=== PATIENT | female | born 1955 | race Hispanic/Latino ===

== ENCOUNTER 2019-02-27 07:23 | Emergency (ER) | payer SELFPAY ==
[2019-02-27] MEDS ORDERED: ONDANSETRON HCL 4 MG/2 ML VIAL ONE (07:49)
[2019-02-27] MEDS ORDERED: HYDROCODONE/ACETAMINOPHEN 5/325 MG TAB ONE (07:50)
[2019-02-27] MEDS ORDERED: LISINOPRIL 5 MG TABLET ONE (07:50)
[2019-02-27 07:57] LABS: BASOPHILS % (AUTO) 0.7 % (0.0-5.0); EOSINOPHILS % (AUTO) 3.5 % (0.0-8.0); HEMATOCRIT 42.2 % (36-48); MEAN CORPUSCULAR HEMOGLOBIN 25.1 pg (27.0-33.0); MEAN CORPUSCULAR HGB CONC 31.3 g/dL (32.0-36.0); MEAN CORPUSCULAR VOLUME 80.4 fL (79-99); MONOCYTES % (AUTO) 8.1 % (3.0-13.0); NEUTROPHILS % (AUTO) 53.4 % (40.0-77.0); PLATELET COUNT (AUTO) 215 K/uL (130-400); RED BLOOD CELL COUNT(AUTO) 5.25 MIL/uL (4.00-5.50); RED CELL DISTRIBUTION WIDTH 13.4 % (11.0-15.5); WHITE BLOOD COUNT (AUTO) 6.8 K/uL (4.8-10.8)
[2019-02-27 08:11] LABS: CREATININE 0.7 mg/dL (0.5-1.5); POTASSIUM 4.4 mmol/L (3.5-5.1)
[2019-02-27 08:17] LABS: ALBUMIN 3.5 g/dL (3.5-5.0); BILIRUBIN,TOTAL 0.5 mg/dL (0.2-1.0); TOTAL PROTEIN, SERUM 7.9 g/dL (6.0-8.3)
[2019-02-27] MEDS ORDERED: LABETALOL 20 MG/4 ML DISP.SYRIN IV ONE (08:57)
[2019-02-27] MEDS ORDERED: INSULIN HUMULIN R 100 UNIT/ML 3ML ONE (08:58)
[2019-02-27 09:17] LABS: ERYTHROCYTE SEDIMENTATION RATE 43 MM/HR (0-30)
[2019-02-27] MEDS ORDERED: CEFTRIAXONE SODIUM 1 GM ONE (09:40)
[2019-02-27] MEDS ORDERED: AMLODIPINE BESYLATE 5 MG TAB ONE (09:56)
== END 2019-02-27 10:50 | disposition home or self-care (01) ==
LOC: EDH 07:23
DX: E11.621 Type 2 diabetes mellitus with foot ulcer (principal); E11.65 Type 2 diabetes mellitus with hyperglycemia; I10 Essential (primary) hypertension; Z91.14 Patient's other noncompliance with medication regimen; Z90.710 Acquired absence of both cervix and uterus
CPT/HCPCS: 36415; 73630; 80053; 82550; 82948 ×2; 84484; 85025; 85651; 93005; 96374; 96375; 99285; J0696; J1815; J2405

== ENCOUNTER 2019-12-15 09:20 | Inpatient (IN) | payer SELFPAY ==
[~2019-12-15] VITALS: Ht 157.5 cm; Wt 78.0 kg
[2019-12-15] MEDS ORDERED: IOHEXOL-350 75 ML VIAL IV ONE (09:45)
[2019-12-15] MEDS ORDERED: LORAZEPAM 2 MG/ML 1 ML VIAL ONE (10:17)
[2019-12-15 10:29] LABS: BASOPHILS % (AUTO) 0.7 % (0.0-5.0); EOSINOPHILS % (AUTO) 3.2 % (0.0-8.0); HEMATOCRIT 47.4 % (36-48); LYMPHOCYTES % (AUTO) 41.3 % (21.0-51.0); MEAN CORPUSCULAR HEMOGLOBIN 25.1 pg (27.0-33.0); MONOCYTES % (AUTO) 5.7 % (3.0-13.0); PLATELET COUNT (AUTO) 234 K/uL (130-400); RED BLOOD CELL COUNT(AUTO) 5.85 MIL/uL (4.00-5.50); WHITE BLOOD COUNT (AUTO) 7.2 K/uL (4.8-10.8)
[2019-12-15 10:34] LABS: INR 0.98 (0.85-1.15); PARTIAL THROMBOPLASTIN TIME 27.9 SEC (26.3-35.5); PROTHROMBIN TIME 10.6 SEC (9.6-11.6)
[2019-12-15 10:43] LABS: CREATININE 0.7 mg/dL (0.5-1.5); POTASSIUM 4.3 mmol/L (3.5-5.1)
[2019-12-15] MEDS ORDERED: NICARDIPINE HCL IV ONE ×2 (10:45)
[2019-12-15] MEDS ORDERED: SODIUM CHLORIDE IV ONE ×2 (10:45)
[2019-12-15] MEDS ORDERED: NACL IV ONE ×2 (10:45)
[2019-12-15 10:46] LABS: ALBUMIN 3.6 g/dL (3.5-5.0); BILIRUBIN,TOTAL 0.3 mg/dL (0.2-1.0); TOTAL PROTEIN, SERUM 8.4 g/dL (6.0-8.3)
[2019-12-15 10:54] LABS: APPEARANCE,URINE Clear (CLEAR); BILIRUBIN,URINE Negative (NEGATIVE); COLOR,URINE Yellow (YELLOW); GLUCOSE, URINE (UA) 500 mg/dL (NEGATIVE); KETONES,URINE Negative (NEGATIVE); LEUKOCYTE ESTERASE ,URINE Negative (NEGATIVE); NITRATE,URINE Negative (NEGATIVE); OCCULT BLOOD,URINE Small (NEGATIVE); PH,URINE 8.5 (5.0-8.0); PROTEIN,URINE POS 2+ mg/dL (NEGATIVE); UROBILINOGEN,URINE 0.2 mg/dL (0.2-1.0)
[2019-12-15 11:02] LABS: AMPHET/METH SCREEN,URINE NEGATIVE (NEGATIVE); BARBITURATE SCREEN, URINE NEGATIVE (NEGATIVE); BENZODIAZEPINES SCREEN,URINE NEGATIVE (NEGATIVE); CANNABINOID SCREEN,URINE NEGATIVE (NEGATIVE); COCAINE SCREEN,URINE NEGATIVE (NEGATIVE); OPIATE SCREEN,URINE NEGATIVE (NEGATIVE); PHENCYCLIDINE SCREEN,URINE NEGATIVE (NEGATIVE)
[2019-12-15 11:30] LABS: BACTERIA,URINE Rare /HPF (None Seen); RBC,URINE 0-1 /HPF (0-1); SQUAMOUS EPITHELIAL CELL,UR Rare /HPF (0-2); WBC,URINE 0-1 /HPF (0-1)
[2019-12-15] MEDS ORDERED: NITROGLYCERIN 0.4 MG SL TAB SL PRN (18:30)
[2019-12-15] MEDS ORDERED: ACETAMINOPHEN 325 MG TAB PO PRN (18:30)
[2019-12-15] MEDS ORDERED: ONDANSETRON HCL 4 MG/2 ML VIAL IV PRN (18:30)
[2019-12-15] MEDS ORDERED: LACTULOSE 20 GM/30 ML UDCUP PO PRN (18:30)
[2019-12-15] MEDS ORDERED: ASPIRIN 81MG TAB.CHEW PO SCH (18:30)
[2019-12-15] MEDS ORDERED: ASPIRIN 81MG TAB.CHEW ONE (18:31)
[2019-12-15] MEDS ORDERED: AMLODIPINE BESYLATE 5 MG TAB ONE (18:31)
[2019-12-15 18:39] LABS: HEMOGLOBIN A1C 10.7 % (4.0-6.0)
[2019-12-15] MEDS: PHARMACY COMMUNICATION MISC SCH (18:45)
[2019-12-15 19:19] LABS: THYROID STIMULATING HORMONE 2.75 uIU/mL (0.36-3.74)
[2019-12-15] MEDS: FAMOTIDINE 20MG TAB 20 MG TAB PO SCH (21:00)
[2019-12-15] MEDS ORDERED: FAMOTIDINE 20MG TAB 20 MG TAB ONE (21:40)
[2019-12-15] MEDS ORDERED: INSULIN HUMULIN R 100 UNIT/ML 3ML ONE (22:28)
[2019-12-15] MEDS ORDERED: METF-444 PO (23:10)
[2019-12-15] MEDS ORDERED: LISI-613 PO (23:10)
[2019-12-16] VITALS (8 sets, daily range): BP systolic 111–184; BP diastolic 57–92
[2019-12-16] MEDS ORDERED: HYDRALAZINE HCL 20 MG/ML VIAL IV PRN (00:30)
[2019-12-16] MEDS ORDERED: HYDRALAZINE HCL 20 MG/ML VIAL ONE (00:32)
[2019-12-16] MEDS ORDERED: INSULIN HUMULIN R 100 UNIT/ML 3ML ONE (06:14)
[2019-12-16] MEDS ORDERED: DEXTROSE 50%-WATER 50 ML DISP.SYRIN IV PRN (06:15)
[2019-12-16] MEDS ORDERED: GLUCAGON 1MG KIT 1 MG ML IM PRN (06:15)
[2019-12-16] MEDS: INSULIN HUMULIN R 100 UNIT/ML 3ML SQ SCH ×4 (06:40→21:06)
[2019-12-16] MEDS: PHARMACY COMMUNICATION MISC SCH ×2 (07:46→17:04)
--- NOTE | 2019-12-16 09:00 | NUR ---
DYSPHAGIA EVAL COMPLETED. -S/S OF ASPIRATION. RECOMMEND REGULAR TEXTURE, THIN LIQUIDS; PILLS WHOLE WITH LIQUIDS. Addendum: 12/16/19 at 1307 by SONIA MELÉNDEZ, [facility] Amended: Links added.
--- NOTE | 2019-12-16 09:15 | NUR ---
COGNITIVE-LINGUISTIC EVALUATION. WITHIN FUNCTIONAL LIMITS. EVALUATION: Pt AAOX3. Pt REQUESTS WANTS AND NEEDS INDEPENDENTLY. Pt INTELLIGIBLE AT 100% ACCURACY TO THE UNFAMILIAR LISTENER. Pt COMMUNICATING AT CONVERSATIONAL LEVEL WITH NO DEFICITS IDENTIFIED AT THIS TIME. Pt COMPLETED COGNITIVE-LINGUISTIC EVALUATION TARGETING: ORIENTATION, ATTENTION/CONCENTRATION, MEMORY (IMMEDIATE, SHORT-TERM AND LONG-TERM), PROBLEM SOLVING, LOGIC/REASONING/INFERENCE, THOUGHT ORGANIZATION, AND FUNCTIONAL MATH. Pt ABLE TO COMPLETE TASKS WITH CORRECT AND TIMELY ANSWERS TO ALL SECTIONS. G-CODES SPOKEN LANGUAGE EXPRESSION: [id number] Addendum: 12/16/19 at 1309 by SONIA MELÉNDEZ [facility] Amended: Links added.
[2019-12-16] MEDS: FAMOTIDINE 20MG TAB 20 MG TAB PO SCH ×2 (09:23→19:47)
[2019-12-16] MEDS: AMLODIPINE BESYLATE 5 MG TAB PO SCH (09:23)
[2019-12-16] MEDS: ASPIRIN 81MG TAB.CHEW PO SCH (09:23)
--- NOTE | 2019-12-16 14:32 | NUR ---
DANN POON Spoke with son Johnson Marrufo ([phone]). Patient lives with family and was independent with ADLs before this admission. Patient has no DME at home. Johnson requests to be listed as next of kin. Tentative D/C plan is to D/C to physical address listed in [place], [place] via private vehicle. CM to follow up. Addendum: 12/16/19 at 1539 by DORIE HOANG Amended: Links added.
[2019-12-16] MEDS: ENOXAPARIN SODIUM 40 MG/0.4 ML SYRINGE SQ SCH (15:48)
--- NOTE | 2019-12-16 15:51 | NUR ---
RD NOTIFICATION Pt admitted with TIA, Emergent HTN, DM2. S/p ST swallow Evaluation. No sign of aspiration. Diet advanced to 75gm CCD. Pt in procedure at time of visit. Monitored labs: BG 241, CRP 20.70, A1C 10.7, CHOL 256, LDL 160. RD notified of Pt with special dietary requests, RD to follow up. Pt noncompliant with medications, also began having double vision and constant headache prior to admit, as per EMR. Recommend add Heart Healthy modifier to diet order RD to follow up with Heart Healthy, Diabetes Nutrition Education RD to continue to monitor. Please notify as additional nutrition concerns arise. Thank you. Addendum: 12/16/19 at [address] Amended: Links added.
[2019-12-16] MEDS: METFORMIN HCL 500 MG TABLET PO SCH (17:00)
[2019-12-16] MEDS ORDERED: ATORVASTATIN CALCIUM 40 MG TABLET ONE (18:29)
[2019-12-16] MEDS ORDERED: INSULIN GLARGINE 100 UNITS/ML 10 ML VIAL SQ SCH (21:00)
[2019-12-16] MEDS ORDERED: ATORVASTATIN CALCIUM 40 MG TABLET PO SCH (21:00)
[2019-12-17] MEDS: PHARMACY COMMUNICATION MISC SCH ×2 (02:45→10:45)
[2019-12-17 03:11] VITALS: BP 135/77
[2019-12-17 05:17] LABS: HEMATOCRIT 42.2 % (36-48); MEAN CORPUSCULAR HGB CONC 31.5 g/dL (32.0-36.0); MEAN CORPUSCULAR VOLUME 79.2 fL (79-99); PLATELET COUNT (AUTO) 237 K/uL (130-400); RED BLOOD CELL COUNT(AUTO) 5.33 MIL/uL (4.00-5.50); RED CELL DISTRIBUTION WIDTH 13.3 % (11.0-15.5); WHITE BLOOD COUNT (AUTO) 8.7 K/uL (4.8-10.8)
[2019-12-17] MEDS: INSULIN HUMULIN R 100 UNIT/ML 3ML SQ SCH ×2 (05:33→11:44)
[2019-12-17 05:39] LABS: BAND NEUTROPHILS % (MANUAL) 1 % (0-2); BASOPHILS % (MANUAL) 2 % (0-2); LYMPHOCYTES % (MANUAL) 42 % (22-44); MAN.DIFF COMMENT-IMPRESSION MANUAL DIFFERENTIAL; MONOCYTES % (MANUAL) 7 % (2-9); REACTIVE LYMPHOCYTES 4 % (0-0); SEGMENTED NEUTROPHILS % 44 % (40-70)
[2019-12-17 05:44] LABS: ALBUMIN 2.9 g/dL (3.5-5.0); BILIRUBIN,TOTAL 0.3 mg/dL (0.2-1.0); CREATININE 0.9 mg/dL (0.5-1.5); POTASSIUM 4.1 mmol/L (3.5-5.1)
[2019-12-17] MEDS: METFORMIN HCL 500 MG TABLET PO SCH (05:46)
[2019-12-17 07:00] VITALS: BP 153/73
[2019-12-17] MEDS ORDERED: LISINOPRIL 20 MG TABLET PO SCH (09:00)
[2019-12-17] MEDS: FAMOTIDINE 20MG TAB 20 MG TAB PO SCH (09:41)
[2019-12-17] MEDS: ASPIRIN 81MG TAB.CHEW PO SCH (09:41)
[2019-12-17] MEDS: AMLODIPINE BESYLATE 5 MG TAB PO SCH (09:41)
[2019-12-17] MEDS: ENOXAPARIN SODIUM 40 MG/0.4 ML SYRINGE SQ SCH (09:42)
[2019-12-17 11:00] VITALS: BP 159/81
[2019-12-17] MEDS ORDERED: LISI-613 PO (12:49)
[2019-12-17] MEDS ORDERED: GLIP5TAB11 PO (12:49)
[2019-12-17] MEDS ORDERED: AMLO5TAB9 PO (12:49)
[2019-12-17] MEDS ORDERED: ATOR40TA69 PO (12:51)
[2019-12-17] MEDS ORDERED: AEC81 PO (12:51)
--- NOTE | 2019-12-17 15:13 | NUR ---
FOLLOW UP COMPLETED. Pt WITH NO OVERT S/S OF ASPIRATION AND TOLERATING DIET. SKILLED SPEECH THERAPY NOT WARRANTED AT THIS TIME. Addendum: 12/17/19 at 1514 by SONIA MELÉNDEZ, [facility] Amended: Links added.
--- NOTE | 2019-12-17 15:50 | NUR ---
pt states understanding of all d/c instructions on after care for a TIA; i have given her list of physicians to find herself a primary care physcian and i have given her dr olivia's number to call once she finds a pcp and gets a referral; i have discussed new perscriptions with patient and given her scripts and told her to return to ed for any return of symptoms of a stroke or tia; i have also applied a soft gauze patch to her eye and given her extra gauze to take home and use. iv access and tele box removed.
== END 2019-12-17 16:09 | disposition home or self-care (01) | DRG 69 ==
LOC: EDH 09:20 → EDHIP 09:21 → 4AH 23:03 → UNDODISIN 12-16 14:01
PROVIDERS: ADMIT Internal Medicine; ATTEND Internal Medicine
DX: G45.9 Transient cerebral ischemic attack, unspecified (principal); H49.22 Sixth [abducent] nerve palsy, left eye; E11.9 Type 2 diabetes mellitus without complications; I10 Essential (primary) hypertension; E66.9 Obesity, unspecified; Z68.32 Body mass index [BMI] 32.0-32.9, adult; Z91.19 Patient's noncompliance with other medical treatment and regimen; E78.5 Hyperlipidemia, unspecified; G47.00 Insomnia, unspecified; Z20.828 Contact with and (suspected) exposure to other viral communicable diseases
CPT/HCPCS: 36415; 70450; 70496; 70498; 70551; 71045; 80053; 80061; 80305; 81001; 82550; 82948; 83036; 83721; 84443; 84484; 85025; 85610; 85651; 85730; 86038; 86140; 86215; 86235; 86592; 87426; 92522; 92610; 93005; 93356; 99291; C8929; G0378; J0360; J1650; J1815; J2060; J3490; J7050; Q9967; U0003

== ENCOUNTER 2023-11-18 07:38 | Observation (INO) | payer MEDICARE ==
[~2023-11-18] VITALS: Ht 157.5 cm; Wt 76.3 kg
[~2023-11-18 07:38] MED LIST: AEC81 PO; AMLO-257 PO; ATOR40TA69 PO; GLIP5TAB15 PO; LISI20TA24 PO; METF-444 PO
[2023-11-18 08:19] LABS: BASOPHILS # (AUTO) 0.05 K/uL (0.00-0.20); BASOPHILS % (AUTO) 0.7 % (0.0-5.0); EOSINOPHILS # (AUTO) 0.18 K/uL (0.00-0.70); EOSINOPHILS % (AUTO) 2.6 % (0.0-8.0); IMMATURE GRANULOCYTE ABSOLUTE 0.02 K/uL (0-1); LYMPHOCYTES % (AUTO) 42.9 % (21.0-51.0); MEAN CORPUSCULAR HEMOGLOBIN 25.1 pg (27.0-33.0); MEAN CORPUSCULAR HGB CONC 31.2 g/dL (32.0-36.0); MEAN CORPUSCULAR VOLUME 80.6 fL (79-99); MONOCYTES # (AUTO) 0.5 K/uL (0.1-1.0); MONOCYTES % (AUTO) 6.5 % (3.0-13.0); NEUTROPHILS # (AUTO) 3.3 K/uL (1.8-7.7); PLATELET COUNT (AUTO) 225 K/uL (130-400); RED BLOOD CELL COUNT(AUTO) 5.21 MIL/uL (4.00-5.50); RED CELL DISTRIBUTION WIDTH 13.2 % (11.0-15.5)
[2023-11-18 08:20] LABS: ADD UA MICROSCOPIC YES; APPEARANCE,URINE CLEAR (CLEAR); BILIRUBIN,URINE NEGATIVE (NEGATIVE); COLOR,URINE COLORLESS (YELLOW); GLUCOSE, URINE (UA) NEGATIVE (NEGATIVE); KETONES,URINE NEGATIVE (NEGATIVE); LEUKOCYTE ESTERASE ,URINE NEGATIVE Leu/uL (NEGATIVE); NITRATE,URINE NEGATIVE (NEGATIVE); OCCULT BLOOD,URINE NEGATIVE (NEGATIVE); PH,URINE 6.5 (5.0-8.0); PROTEIN,URINE 100 mg/dL (NEGATIVE); UROBILINOGEN,URINE 0.2 mg/dL (0.2-1.0)
[2023-11-18 08:23] LABS: BACTERIA,URINE RARE /HPF (None Seen); RBC,URINE 0-1 /HPF (0-1); SQUAMOUS EPITHELIAL CELL,UR RARE /HPF (0-2); WBC,URINE 0-1 /HPF (0-1)
[2023-11-18 08:28] LABS: POTASSIUM 4.1 mmol/L (3.5-5.1)
[2023-11-18] MEDS: LAbetaLOL 20MG SYG IV ONE (09:43)
[2023-11-18] MEDS: ketOROlac 30MG VIAL (30MG/ML) IVP ONE (09:43)
[2023-11-18] MEDS: LORazepam 1 MG TABLET PO ONE (11:04)
[2023-11-18] MEDS: cloNIDine HCL 0.1 MG TABLET PO ONE (13:12)
[2023-11-18] MEDS ORDERED: hydrALAZine 20MG/ML VIAL IV PRN (14:00)
[2023-11-18] MEDS ORDERED: ondanSETRON 4MG INJ IVP PRN (14:00)
[2023-11-18] MEDS ORDERED: acetaMINOPHEN 325 MG TAB PO PRN (14:00)
[2023-11-18] MEDS ORDERED: HYDR25TA67 PO (14:26)
[2023-11-18] MEDS ORDERED: LISI40TA9 PO (14:26)
[2023-11-18] MEDS ORDERED: CLON0.1T PO (14:26)
[2023-11-18] MEDS ORDERED: TIZA-194 PO (14:26)
[2023-11-18] MEDS ORDERED: INSU3INS3 SQ (14:26)
[2023-11-18] MEDS ORDERED: HYDR-4060 PO (14:31)
[2023-11-18] MEDS ORDERED: MAG/ALUM/SIMETH 30 ML UDCUP PO PRN (15:00)
[2023-11-18] MEDS ORDERED: PoTASSium chloRIDE 20MEQ ER 20 MEQ ERTAB PO PRN (15:00)
[2023-11-18] MEDS ORDERED: PoTASSium chloRIDE 20MEQ/100ML 100 ML IV PRN ×2 (15:00)
[2023-11-18] MEDS ORDERED: HYDROcodone/APAP 5/325 1 TAB TABLET PO PRN ×2 (15:00)
[2023-11-18] MEDS ORDERED: LACTULOSE 20 GM/30 ML UDCUP PO PRN (15:00)
[2023-11-18] MEDS ORDERED: GLUCAGON 1MG KIT 1 MG ML IM PRN (15:00)
[2023-11-18] MEDS: amLODIPine 5 MG TAB PO ONE (15:00)
[2023-11-18] MEDS ORDERED: DEXTROSE 50%-WATER 50 ML DISP.SYRIN IV PRN (15:00)
[2023-11-18] MEDS ORDERED: morPHINE 2 MG SYG IVP PRN (15:00)
[2023-11-18] MEDS ORDERED: PoTASSium chl 10% ELIXIR 20MEQ 20 MEQ/15 ML UDCUP PO PRN (15:00)
[2023-11-18 16:05] VITALS: BP 200/84; PULSE 68; RESP 16; TEMP 97.6; O2SAT 98
[2023-11-18] MEDS: 0.9%NACL 1000ML 1,000 ML IV SCH (16:05)
[2023-11-18] MEDS: cloNIDine HCL 0.1 MG TABLET PO PRN (16:25)
[2023-11-18] MEDS: metoPROLOL tartRATE 50 MG TAB PO ONE (17:54)
[2023-11-18] MEDS: GABAPENTIN 300 MG CAPSULE PO ONE (18:24)
[2023-11-18 20:00] VITALS: O2SAT 96
[2023-11-18] MEDS: GABAPENTIN 300 MG CAPSULE PO SCH (20:02)
[2023-11-18] MEDS: hydrALAZine 25MG TABLET PO SCH (20:03)
[2023-11-18] MEDS: FAMOTIDINE 20MG TAB PO SCH (20:03)
[2023-11-18] MEDS: INSULIN humuLIN R 100 UNIT/ML 3ML SQ SCH (20:08)
[2023-11-18 20:31] VITALS: BP 166/81; PULSE 66; RESP 17; TEMP 97.6
[2023-11-18] MEDS ORDERED: amLODIPine 5 MG TAB PO SCH (21:00)
[2023-11-18] MEDS ORDERED: metoPROLOL tartRATE 50 MG TAB PO SCH (21:00)
[2023-11-18 23:39] VITALS: BP 149/80; PULSE 71; RESP 17; TEMP 97.7
[2023-11-19 04:28] VITALS: BP 152/81; PULSE 72; RESP 18; TEMP 97.8
[2023-11-19 07:40] VITALS: O2SAT 100
[2023-11-19 08:14] VITALS: BP 202/89; PULSE 74; RESP 20; TEMP 98.3
[2023-11-19] MEDS: MELOXICAM 7.5 MG TABLET PO SCH (08:34)
[2023-11-19] MEDS: metoPROLOL tartRATE 50 MG TAB PO SCH (08:34)
[2023-11-19] MEDS: LISINOPRIL 40 MG TABLET PO SCH (08:35)
[2023-11-19] MEDS: ENOXAPARIN SODIUM 40 MG/0.4 ML SYRINGE SQ SCH (08:36)
[2023-11-19] MEDS: INSULIN GLARgine 100 UNITS/ML 10 ML VIAL SQ SCH (08:53)
[2023-11-19] MEDS ORDERED: [UNRECOGNIZED DRUG - OTHER] SQ SCH (09:00)
[2023-11-19] MEDS ORDERED: INSULIN GLARGINE HUM REC ANLOG 23 UNIT SQ SCH (09:00)
[2023-11-19] MEDS ORDERED: INSULIN GLARgine 100 UNITS/ML 10 ML VIAL SQ SCH (09:00)
[2023-11-19 12:27] VITALS: BP 134/67; PULSE 66; RESP 20; TEMP 98.6
[2023-11-19] MEDS: metoPROLOL tartRATE 50 MG TAB PO ONE (12:33)
[2023-11-19] MEDS ORDERED: METO100T14 PO (14:25)
[2023-11-19] MEDS ORDERED: LISI20TA24 PO (14:25)
[2023-11-19] MEDS ORDERED: GABA300C PO (14:25)
[2023-11-19] MEDS ORDERED: ACET-66 PO (14:25)
[2023-11-19] MEDS ORDERED: metoPROLOL tartRATE 50 MG TAB PO SCH (21:00)
== END 2023-11-19 16:45 | disposition home or self-care (01) ==
LOC: EDH 07:38 → EDHIP 13:46 → INTOOBSV 13:46 → 4AH 15:21
PROVIDERS: ADMIT Internal Medicine; ATTEND Internal Medicine
DX: I16.0 Hypertensive urgency (principal); M54.16 Radiculopathy, lumbar region; E11.42 Type 2 diabetes mellitus with diabetic polyneuropathy; E11.65 Type 2 diabetes mellitus with hyperglycemia; I12.9 Hypertensive chronic kidney disease with stage 1 through stage 4 chronic kidney disease, or unspecified chronic kidney disease; E11.22 Type 2 diabetes mellitus with diabetic chronic kidney disease; N18.2 Chronic kidney disease, stage 2 (mild); E78.2 Mixed hyperlipidemia; N10 Acute pyelonephritis; Z79.84 Long term (current) use of oral hypoglycemic drugs; Z79.899 Other long term (current) drug therapy; Z90.710 Acquired absence of both cervix and uterus; Z79.4 Long term (current) use of insulin; Z79.82 Long term (current) use of aspirin
CPT/HCPCS: 36415; 72100; 72148; 74176; 80048; 81001; 82948; 83690; 84484; 85025; 93005; 96372; 96374; 96375; G0378; J1650; J1885

== ENCOUNTER → 2023-12-17 | Outpatient (CLI) | payer MEDICARE ==
[~2023-12-17] MED LIST changes: +ACET-66 PO; -AEC81 PO; -AMLO-257 PO; -ATOR40TA69 PO; +CLON0.1T PO; +GABA300C PO; +GADOTERATE MEGLUMINE 10 MMOL/20 ML VIAL IV ONE; -GLIP5TAB15 PO; +HYDR25TA67 PO; +INSU3INS3 SQ; -METF-444 PO; +METO100T14 PO
== END | disposition home or self-care (01) ==
LOC: RAH 10:26
PROVIDERS: ATTEND Internal Medicine Hematology & Oncology
DX: M54.16 Radiculopathy, lumbar region (principal)
CPT/HCPCS: 72157; A9575

== ENCOUNTER → 2024-01-20 | Outpatient (CLI) | payer MEDICARE ==
[~2024-01-20] MED LIST changes: -GADOTERATE MEGLUMINE 10 MMOL/20 ML VIAL IV ONE
--- NOTE | 2024-01-26 08:09 | HMCSR ---
APPROVED REPORT EXAM: Two-dimensional and M-mode echocardiogram with Doppler and color Doppler. INDICATION ICD: R07.9 Chest pain 2D Dimensions RVDd3.5 cmLVEF(%)55.0 (>50%)LVED Vol(simp.)99.0 mL IVSd1.0 (0.7-1.1cm)FS(%)29 %LVES Vol(simp.)47.0 mL LVDd4.8 (3.8-5.6cm)LA (2D)4.4 (1.6-4.0cm)LVEF(%, simp.)53 % PWd1.0 (0.7-1.1cm)Ao Root(2D)2.6 (2.0-3.7cm)LA ESV INDEX (BP)42.26 mL/m2 LVDs3.4 (2.5-4.0cm)LVOT diam2.0 (1.8-2.4cm) IVC diam1.8 cm M-Mode Dimensions LA (MM)4.4 (1.6-4.0cm) Ao Root(MM)2.8 (2.0-3.7cm) Aortic Valve AoV Vmax1.6 m/Ki Peak GR10.2 mmHgLVOT Vmax1.0 m/s AoV VTI0.3 mAo Mean GR4.3 mmHgLVOT VTI0.24 m DAVID (VMAX)2.5 cm2AVA (VTI) 2.5 cm2 Mitral Valve MV E Meji654.3 cm/sDECEL Mxwz572 ms MV A Vmax90.3 cm/s E/A ratio1.5 TDI E/E' Ifwsfy79.4E/E' Xlujste08.1 Pulmonary Valve PV Vmax0.8 m/sPV VTI0.21 m Tricuspid Valve TR Vmax3.0 m/sRAP (EST) 8 sgZrMCTE24.3 mmHg TR Peak GR35.3 mmHg Left Ventricle The left ventricle structure and function is normal. There is normal LV segmental wall motion. There is normal left ventricular wall thickness. LVEF is 50-55%. Grade 2 diastolic dysfunction. Right Ventricle The right ventricle is normal size. The right ventricular systolic function is normal. Atria The left atrium is moderately dilated. The interatrial septum is intact with no evidence for an atria l septal defect. The right atrium size is normal. Aortic Valve Aortic valve is trileaflet. Aortic valve leaflets are sclerotic but open well. Trace aortic regurgita tion. There is no aortic valvular stenosis. Mitral Valve Mitral valve leaflets are mildly sclerotic but open well. Mitral regurgitation is mild. There is no m itral valve stenosis. Tricuspid Valve The tricuspid valve leaflets appear normal. There is mild tricuspid regurgitation. Right ventricular systolic pressure is estimated at 40-50 mmHg. Pulmonic Valve Pulmonic valve is not well visualized. There is trace pulmonic valvular regurgitation. Great Vessels The aortic root is normal in size. IVC is dilated and collapses >50% with inspiration. Pericardium No pericardial effusion. Conclusion Grade 2 diastolic dysfunction. There is normal LV segmental wall motion. LVEF is 50-55%. There is mild tricuspid regurgitation. Right ventricular systolic pressure is estimated at 40-50 mmHg.
== END | disposition home or self-care (01) ==
LOC: SHCH 14:03
PROVIDERS: ATTEND Internal Medicine Cardiovascular Disease
DX: I20.9 Angina pectoris, unspecified (principal); R06.02 Shortness of breath; R07.9 Chest pain, unspecified
CPT/HCPCS: 93306

== ENCOUNTER → 2024-01-21 | Outpatient (CLI) | payer MEDICARE ==
[2024-01-21 16:44] LABS: CREATININE 1.1 mg/dL (0.5-1.0); POTASSIUM 5.1 mmol/L (3.5-5.1)
== END | disposition home or self-care (01) ==
LOC: LAB 15:02
PROVIDERS: ATTEND Physician Assistant
DX: I25.110 Atherosclerotic heart disease of native coronary artery with unstable angina pectoris (principal)
CPT/HCPCS: 36415; 80048

== ENCOUNTER → 2024-01-26 | Outpatient (CLI) | payer MEDICARE ==
[~2024-01-26] MED LIST changes: +IOHEXOL 350 MG/ML 100ML INFUS..BTL IV ONE; +metoPROLOL tartRATE 1 MG/ML 5ML VIAL IV ONE
--- NOTE | 2024-01-26 10:27 | HMCIMG ---
CT CARDIAC ANGIO W/CONT. CCTA REASON: CHEST PAIN COMPARISON: None TECHNIQUE: Images are obtained through the heart in the axial plane before and during bolus IV contrast infusion, 100 cc Omnipaque 350. 2-D and 3-D multiplanar reconstruction images were then performed. The injection had to be repeated once due to motion artifact on the first sequence, total contrast volume was 200 cc. FINDINGS: This dictation is for the noncardiac findings only. Cardiac and coronary artery findings are reported separately. Visualized portions of the lungs are clear. There is normal-appearing pulmonary interstitium. There is no hilar or mediastinal lymphadenopathy. Chest wall structures appear unremarkable. IMPRESSION: 1. Unremarkable noncardiac portions of CT cardiac angiography.
== END | disposition home or self-care (01) ==
LOC: RAH 08:36
PROVIDERS: ATTEND Internal Medicine Cardiovascular Disease
DX: R07.9 Chest pain, unspecified (principal)
CPT/HCPCS: 75574; J3490; Q9967

== ENCOUNTER → 2024-02-20 | Outpatient (CLI) | payer MEDICARE ==
[~2024-02-20] MED LIST changes: -IOHEXOL 350 MG/ML 100ML INFUS..BTL IV ONE; -metoPROLOL tartRATE 1 MG/ML 5ML VIAL IV ONE
--- NOTE | 2024-02-24 17:35 | HMCSR ---
APPROVED REPORT Renal Artery Doppler Origin (R) 117.1/26.0 cm/secOrigin (L) 138.3/19.4 cm/sec Proximal (R) 101.3/17.8 cm/secProximal (L) 148.0/31.5 cm/sec Mid (R) 96.1/14.6 cm/secMid (L) 196.5/36.4 cm/sec Distal (R) 84.6/21.9 cm/secDistal (L) 184.3/29.1 cm/sec Renal/Aorta Ratio (R) 1.13Renal Aorta Ratio (L) 1.90 Resistive Index (R) 0.67Resistive Index (L) 0.70 Segmental A. (R) 63.7/20.9 cm/secLt. Segmental A. (L) 72.3/21.7 cm/sec Renal Measurements Kidney Size (R) 10.0x4.7x cmKidney Size (L)11.0x6.2x cm Aortic Doppler VelocityWaveform Aorta Mid. 103.4 cm/sec Technologist Impression Both kidneys appear to be within normal size parameters (greater than 9.0cm and symmetrical). Based on the renal/aortic ratio there is no evidence of significant stenosis. Mildly elevated velocities noted in the left renal artery suggestive of <60% stenosis. Conclusion No evidence of hemodynamically significant renal artery stenosis Conclusion No evidence of hemodynamically significant renal artery stenosis
== END | disposition home or self-care (01) ==
LOC: SHCH 08:24
PROVIDERS: ATTEND Internal Medicine Cardiovascular Disease
DX: I10 Essential (primary) hypertension (principal)
CPT/HCPCS: 93975

== ENCOUNTER → 2024-02-27 | Outpatient (CLI) | payer MEDICARE | END | disposition home or self-care (01) | LOC: SHCH 12:52 | PROVIDERS: ATTEND Internal Medicine Cardiovascular Disease | DX: I87.2 Venous insufficiency (chronic) (peripheral) (principal); I73.9 Peripheral vascular disease, unspecified; I87.1 Compression of vein | CPT/HCPCS: 93925; 93970 ==